=== PATIENT | male | born 1945 | race Caucasian/White ===

== ENCOUNTER 2016-06-26 09:52 | Inpatient (IN) | payer OTHER ==
[~2016-06-26] VITALS: Ht 175.3 cm; Wt 104.5 kg
[~2016-06-26 09:52] MED LIST: ADVAIR 250/501 DISK IH; AMOXICILLIN500 M1 PO; ATORVASTATIN CA40 MG PO; CITALOPRAM HBR20 MG PO; COGENTIN2 MG PO; FLEXERIL10 MG PO; FLOMAX0.4 MG PO; GABAPENTIN300 MG PO; GLIPIZIDE10 MG PO; LISINOPRIL10 MG PO; LOPRESSOR50 MG PO; METFORMIN HCL1000 MG PO; NOVOLOG MI100 UNIT/M SC; SKELAXIN800 MG PO; SOMA250 MG PO
[2016-06-26] MEDS ORDERED: METOPROLOL TAR100 MG PO (10:08)
[2016-06-26] MEDS ORDERED: LISINOPRIL20 MG PO (10:08)
[2016-06-26 10:49] LABS: EOSINOPHIL (%) 1.2 % (0-5); EOSINOPHIL COUNT 0.2 K/uL (0-0.3); HEMATOCRIT 44.4 % (38.0-50.0); IMMATURE GRANULOCYTE (%) 0.2 % (0.0-0.7); IMMATURE GRANULOCYTE COUNT 0.2 K/uL; LYMPHOCYTE COUNT 1.5 K/uL (1.0-2.8); MCHC 33.8 G/DL (30.0-36.0); MCV 82.8 FL (86-99); MEAN PLAT.VOLUME 10.5 uM^3 (9.0-12.4); MONOCYTE (%) 7.2 % (3-12); MONOCYTE COUNT 0.9 K/uL (0-0.8); NEUTROPHIL (%) 78.8 % (45-76); NEUTROPHIL COUNT 9.8 K/uL (1.8-6.4); PLATELET COUNT 229 K/uL (156-360); RBC DIS.WIDTH-CV 14.4 % (11.8-14.6); RBC DIS.WIDTH-SD 43.1 % (39-53); RED BLOOD COUNT 5.36 M/uL (4.00-5.50); WHITE BLOOD COUNT 12.4 K/uL (4.1-10.2)
[2016-06-26 10:57] LABS: CHLORIDE 102 mEq/L (99-109); POTASSIUM 4.4 mEq/L (3.7-5.4); SODIUM 137 mEq/L (136-147)
[2016-06-26 10:59] LABS: GLUCOSE 230 mg/dL (70-99)
[2016-06-26 11:01] LABS: ANION GAP 12 MEQ/L (2-14); TOTAL BILIRUBIN 0.6 mg/dL (0.0-1.0)
[2016-06-26 11:01] LABS: INTER. NORMALIZED RATIO 1.1; PROTHROMBIN TIME 11.5 (9.2-11.2); PTT 24.5 (25-32)
[2016-06-26 11:03] LABS: ALKALINE PHOSPHATASE 66 IU/L (3-129); GFR ESTIMATE (CALCULATED) > 59 mL/min/
[2016-06-26 11:04] LABS: UREA NITROGEN (BUN) 21 mg/dL (9-23)
[2016-06-26 11:09] LABS: TROP-I INTERPRETATION NEGATIVE; TROPONIN-I 0.12 ng/mL (0.0-0.30)
[2016-06-26] MEDS ORDERED: URIBEL CAPSULE1 EACH PO (13:31)
[2016-06-26] MEDS ORDERED: BENZTROPINE MESY2 MG PO (13:31)
[2016-06-26] MEDS ORDERED: NOVOLOG MI100 UNIT/M SC (13:38)
[2016-06-26] MEDS ORDERED: DAILY VALUE1 EACH PO (13:38)
[2016-06-26] MEDS ORDERED: CO Q-10100 MG PO (13:38)
[2016-06-26 14:15] VITALS: BP 125/65
[2016-06-26 17:47] LABS: POINT-OF-CARE METER ID UU13113700
[2016-06-26 19:09] LABS: TROP-I INTERPRETATION POSITIVE
[2016-06-26 19:10] LABS: TROPONIN-I 21.71 ng/mL (0.0-0.30)
[2016-06-26 21:00] VITALS: BP 125/63
[2016-06-26 22:02] LABS: POINT-OF-CARE METER ID UU13113700
[2016-06-26 23:39] VITALS: BP 100/52
[2016-06-27 03:05] LABS: TROP-I INTERPRETATION POSITIVE
[2016-06-27 03:07] LABS: TROPONIN-I 29.15 ng/mL (0.0-0.30)
[2016-06-27 04:06] VITALS: BP 100/64
[2016-06-27 12:23] VITALS: BP 87/53
[2016-06-27 12:23] LABS: POINT-OF-CARE METER ID UU14162513
[2016-06-27 16:14] VITALS: BP 105/58
[2016-06-27 17:32] LABS: POINT-OF-CARE METER ID UU13113700
[2016-06-27 20:03] VITALS: BP 113/62
[2016-06-28 00:36] LABS: TROP-I INTERPRETATION POSITIVE
[2016-06-28 00:57] LABS: TROPONIN-I 13.46 ng/mL (0.0-0.30)
[2016-06-28 01:01] VITALS: BP 110/58
[2016-06-28 05:05] VITALS: BP 111/56
[2016-06-28 06:38] LABS: EOSINOPHIL (%) 2.3 % (0-5); EOSINOPHIL COUNT 0.2 K/uL (0-0.3); HEMATOCRIT 39.9 % (38.0-50.0); IMMATURE GRANULOCYTE (%) 0.1 % (0.0-0.7); LYMPHOCYTE COUNT 2.3 K/uL (1.0-2.8); MCH 27.7 PG (29.0-34.0); MCHC 32.6 G/DL (30.0-36.0); MCV 84.9 FL (86-99); MEAN PLAT.VOLUME 11.3 uM^3 (9.0-12.4); NEUTROPHIL (%) 57.1 % (45-76); NEUTROPHIL COUNT 4.7 K/uL (1.8-6.4); PLATELET COUNT 204 K/uL (156-360); RBC DIS.WIDTH-CV 14.6 % (11.8-14.6); RBC DIS.WIDTH-SD 45.4 % (39-53)
[2016-06-28 06:44] LABS: WHITE BLOOD COUNT 8.2 K/uL (4.1-10.2)
[2016-06-28 08:01] LABS: ALKALINE PHOSPHATASE 63 IU/L (3-129); ANION GAP 7 MEQ/L (2-14); CHLORIDE 103 MEQ/L (99-109); GFR ESTIMATE (CALCULATED) > 59 mL/min/; GLUCOSE 150 mg/dL (70-99); POTASSIUM 4.6 MEQ/L (3.7-5.4); SAMPLE HEMOLYSIS CHECK 0; SAMPLE ICTERIC CHECK 0; SAMPLE LIPEMIA CHECK 0; SODIUM 133 MEQ/L (136-147); TOTAL BILIRUBIN 0.5 MG/DL (0.0-1.0); UREA NITROGEN (BUN) 18 mg/dL (9-23)
[2016-06-28 12:00] VITALS: BP 115/64
[2016-06-28 21:20] VITALS: BP 125/68
[2016-06-28 23:38] VITALS: BP 146/67
[2016-06-29 01:32] LABS: TROP-I INTERPRETATION POSITIVE; TROPONIN-I 7.83 ng/mL (0.0-0.30)
[2016-06-29 04:15] VITALS: BP 125/76
[2016-06-29 06:18] LABS: HEMATOCRIT 39.1 % (38.0-50.0); MCH 27.8 PG (29.0-34.0); MCHC 32.7 G/DL (30.0-36.0); MCV 84.8 FL (86-99); PLATELET COUNT 203 K/uL (156-360); RBC DIS.WIDTH-CV 14.8 % (11.8-14.6); RBC DIS.WIDTH-SD 45.6 % (39-53); RED BLOOD COUNT 4.61 M/uL (4.00-5.50); WHITE BLOOD COUNT 7.2 K/uL (4.1-10.2)
[2016-06-29 09:02] VITALS: BP 135/81
[2016-06-29 12:19] VITALS: BP 140/76
[2016-06-29 12:35] LABS: POINT-OF-CARE METER ID UU14162513
[2016-06-29 16:37] LABS: POINT-OF-CARE METER ID UU13113819
[2016-06-29 18:15] VITALS: BP 162/77
[2016-06-29 20:00] VITALS: BP 130/76
[2016-06-29 21:41] LABS: POINT-OF-CARE METER ID UU13113698
[2016-06-29 23:11] VITALS: BP 139/67
[2016-06-30 01:06] LABS: TROP-I INTERPRETATION POSITIVE
[2016-06-30 01:08] LABS: TROPONIN-I 7.94 ng/mL (0.0-0.30)
[2016-06-30 04:13] VITALS: BP 136/78
[2016-06-30 08:00] VITALS: BP 159/73
[2016-06-30 08:01] LABS: POINT-OF-CARE METER ID UU13113698
[2016-06-30 11:38] VITALS: BP 144/79
[2016-06-30 15:31] VITALS: BP 137/69
[2016-06-30 16:03] LABS: POINT-OF-CARE METER ID UU13113698
[2016-06-30 20:02] VITALS: BP 155/76
[2016-06-30 23:24] VITALS: BP 135/71
[2016-07-01] VITALS (7 sets, daily range): BP systolic 100–181; BP diastolic 57–81
[2016-07-01 06:34] LABS: HEMATOCRIT 39.7 % (38.0-50.0); MCH 27.3 PG (29.0-34.0); MCHC 32.5 G/DL (30.0-36.0); MCV 84.1 FL (86-99); MEAN PLAT.VOLUME 11.3 uM^3 (9.0-12.4); PLATELET COUNT 194 K/uL (156-360); RBC DIS.WIDTH-CV 14.7 % (11.8-14.6); RBC DIS.WIDTH-SD 45.6 % (39-53); RED BLOOD COUNT 4.72 M/uL (4.00-5.50); WHITE BLOOD COUNT 6.7 K/uL (4.1-10.2)
[2016-07-01 07:03] LABS: ANION GAP 9 MEQ/L (2-14); CHLORIDE 106 MEQ/L (99-109); GFR ESTIMATE (CALCULATED) > 59 mL/min/; POTASSIUM 4.1 MEQ/L (3.7-5.4); SAMPLE HEMOLYSIS CHECK 0; SAMPLE ICTERIC CHECK 0; SAMPLE LIPEMIA CHECK 0; SODIUM 138 MEQ/L (136-147); UREA NITROGEN (BUN) 8 mg/dL (9-23)
[2016-07-01 07:05] LABS: GLUCOSE 92 mg/dL (70-99)
[2016-07-01 07:43] LABS: POINT-OF-CARE METER ID UU13113698
[2016-07-01] MEDS ORDERED: ASPIR-LOW81 MG PO (10:11)
[2016-07-01] MEDS ORDERED: ALPRAZOLAM0.5 MG PO (10:11)
[2016-07-01] MEDS ORDERED: CLOPIDOGREL75 MG PO (10:11)
[2016-07-01 16:09] LABS: POINT-OF-CARE METER ID UU13113698
[2016-07-01 21:17] LABS: POINT-OF-CARE METER ID UU13113781
[2016-07-01 21:50] LABS: POINT-OF-CARE METER ID UU13113781
[2016-07-01 23:20] LABS: ADD MIUA? NO; BILIRUBIN NEGATIVE; BLOOD NEGATIVE; COLOR YELLOW ((YELLOW)); GLUCOSE (STRIP) NEGATIVE; KETONES NEGATIVE; LEUKOCYTES NEGATIVE; NITRITE NEGATIVE; PROTEIN (STRIP) TRACE; UCUL ADDED? NO
[2016-07-02 01:01] LABS: TROP-I INTERPRETATION POSITIVE
[2016-07-02 01:03] LABS: TROPONIN-I 2.35 ng/mL (0.0-0.30)
[2016-07-02 03:04] VITALS: BP 124/70
[2016-07-02 03:20] LABS: POINT-OF-CARE METER ID UU13113781
[2016-07-02 05:13] LABS: POINT-OF-CARE METER ID UU14174216
[2016-07-02 06:35] LABS: EOSINOPHIL (%) 1.9 % (0-5); EOSINOPHIL COUNT 0.2 K/uL (0-0.3); HEMATOCRIT 38.5 % (38.0-50.0); IMMATURE GRANULOCYTE (%) 0.2 % (0.0-0.7); LYMPHOCYTE COUNT 1.2 K/uL (1.0-2.8); MCH 27.3 PG (29.0-34.0); MCHC 31.4 G/DL (30.0-36.0); MCV 86.7 FL (86-99); MEAN PLAT.VOLUME 11.3 uM^3 (9.0-12.4); MONOCYTE (%) 11.5 % (3-12); MONOCYTE COUNT 1.3 K/uL (0-0.8); NEUTROPHIL (%) 75.3 % (45-76); NEUTROPHIL COUNT 8.4 K/uL (1.8-6.4); PLATELET COUNT 193 K/uL (156-360); RBC DIS.WIDTH-CV 15.5 % (11.8-14.6); RBC DIS.WIDTH-SD 49.2 % (39-53); RED BLOOD COUNT 4.44 M/uL (4.00-5.50)
[2016-07-02 06:42] LABS: ANION GAP 8 MEQ/L (2-14); CHLORIDE 105 MEQ/L (99-109); GFR ESTIMATE (CALCULATED) > 59 mL/min/; GLUCOSE 86 mg/dL (70-99); MAGNESIUM 1.8 mg/dl (1.3-2.7); POTASSIUM 4.2 MEQ/L (3.7-5.4); SAMPLE HEMOLYSIS CHECK 0; SAMPLE ICTERIC CHECK 0; SAMPLE LIPEMIA CHECK 0; SODIUM 136 MEQ/L (136-147); UREA NITROGEN (BUN) 9 mg/dL (9-23)
[2016-07-02 06:45] LABS: WHITE BLOOD COUNT 11.2 K/uL (4.1-10.2)
[2016-07-02 09:06] VITALS: BP 136/78
[2016-07-02 11:25] LABS: POINT-OF-CARE METER ID UU13113781
[2016-07-02 13:02] VITALS: BP 148/70
[2016-07-02 13:20] VITALS: BP 148/70
[2016-07-02 16:00] VITALS: BP 141/65
[2016-07-02 16:41] LABS: POINT-OF-CARE METER ID UU13113698
[2016-07-02 19:39] VITALS: BP 145/76
[2016-07-02 20:52] LABS: POINT-OF-CARE METER ID UU13113698
[2016-07-02 20:53] LABS: METH RESISTANT S AUREUS PCR NEGATIVE (NEGATIVE); PROBE CHECK PASS; SPECIMEN PROCESSING CONTROL PASS
[2016-07-03] VITALS: BP 149/64
[2016-07-03 04:00] VITALS: BP 139/72
[2016-07-03 05:35] LABS: EOSINOPHIL (%) 1.8 % (0-5); EOSINOPHIL COUNT 0.2 K/uL (0-0.3); HEMATOCRIT 35.8 % (38.0-50.0); IMMATURE GRANULOCYTE (%) 0.2 % (0.0-0.7); LYMPHOCYTE COUNT 0.9 K/uL (1.0-2.8); MCH 27.4 PG (29.0-34.0); MCHC 31.8 G/DL (30.0-36.0); MCV 86.1 FL (86-99); MEAN PLAT.VOLUME 11.6 uM^3 (9.0-12.4); MONOCYTE (%) 13.7 % (3-12); MONOCYTE COUNT 1.6 K/uL (0-0.8); NEUTROPHIL (%) 76.1 % (45-76); NEUTROPHIL COUNT 8.6 K/uL (1.8-6.4); PLATELET COUNT 217 K/uL (156-360); RBC DIS.WIDTH-CV 15.1 % (11.8-14.6); RBC DIS.WIDTH-SD 47.1 % (39-53); RED BLOOD COUNT 4.16 M/uL (4.00-5.50); WHITE BLOOD COUNT 11.3 K/uL (4.1-10.2)
[2016-07-03 05:59] LABS: ANION GAP 10 MEQ/L (2-14); CHLORIDE 105 MEQ/L (99-109); GFR ESTIMATE (CALCULATED) > 59 mL/min/; MAGNESIUM 1.7 mg/dl (1.3-2.7); POTASSIUM 4.1 MEQ/L (3.7-5.4); SAMPLE HEMOLYSIS CHECK 0; SAMPLE ICTERIC CHECK 0; SAMPLE LIPEMIA CHECK 0; SODIUM 135 MEQ/L (136-147); UREA NITROGEN (BUN) 9 mg/dL (9-23)
[2016-07-03 06:02] LABS: GLUCOSE 110 mg/dL (70-99)
[2016-07-03 07:36] LABS: POINT-OF-CARE METER ID UU13113698
[2016-07-03 09:08] VITALS: BP 130/81
[2016-07-03 11:05] LABS: INFLUENZA A VIRAL ANTIGEN NEGATIVE; INFLUENZA B VIRAL ANTIGEN NEGATIVE
[2016-07-03 11:29] VITALS: BP 143/69
[2016-07-03 11:39] LABS: POINT-OF-CARE METER ID UU13113698
[2016-07-03 16:10] LABS: POINT-OF-CARE METER ID UU13113698
[2016-07-03 16:35] VITALS: BP 133/74
[2016-07-03 19:08] VITALS: BP 150/73
[2016-07-04] VITALS: BP 134/73
[2016-07-04 04:00] VITALS: BP 148/79
[2016-07-04 06:00] LABS: EOSINOPHIL (%) 2.7 % (0-5); EOSINOPHIL COUNT 0.2 K/uL (0-0.3); HEMATOCRIT 34.6 % (38.0-50.0); IMMATURE GRANULOCYTE (%) 0.1 % (0.0-0.7); MCH 27.5 PG (29.0-34.0); MCHC 32.4 G/DL (30.0-36.0); MONOCYTE (%) 10.9 % (3-12); NEUTROPHIL (%) 74.2 % (45-76); NEUTROPHIL COUNT 6.5 K/uL (1.8-6.4); PLATELET COUNT 231 K/uL (156-360); RBC DIS.WIDTH-CV 14.8 % (11.8-14.6); RBC DIS.WIDTH-SD 46.1 % (39-53); RED BLOOD COUNT 4.07 M/uL (4.00-5.50); WHITE BLOOD COUNT 8.8 K/uL (4.1-10.2)
[2016-07-04 06:26] LABS: ANION GAP 9 MEQ/L (2-14); CHLORIDE 106 MEQ/L (99-109); GFR ESTIMATE (CALCULATED) > 59 mL/min/; GLUCOSE 102 mg/dL (70-99); MAGNESIUM 1.8 mg/dl (1.3-2.7); POTASSIUM 4.1 MEQ/L (3.7-5.4); SAMPLE HEMOLYSIS CHECK 0; SAMPLE ICTERIC CHECK 0; SAMPLE LIPEMIA CHECK 0; SODIUM 137 MEQ/L (136-147); UREA NITROGEN (BUN) 10 mg/dL (9-23)
[2016-07-04 08:06] LABS: POINT-OF-CARE METER ID UU14174216; POINT-OF-CARE USER ID NUTSLF44
[2016-07-04 08:43] VITALS: BP 136/64
[2016-07-04 11:33] LABS: POINT-OF-CARE METER ID UU14174216; POINT-OF-CARE USER ID NUTSLF44
[2016-07-04 12:12] VITALS: BP 182/94
[2016-07-04 16:04] VITALS: BP 155/75
[2016-07-04 16:49] LABS: POINT-OF-CARE METER ID UU13113698; POINT-OF-CARE USER ID NUTSLF44
[2016-07-04 20:00] VITALS: BP 156/87
[2016-07-04 20:43] LABS: POINT-OF-CARE METER ID UU13113698
[2016-07-05 00:12] VITALS: BP 142/71
[2016-07-05 03:32] VITALS: BP 149/80
[2016-07-05 07:33] LABS: POINT-OF-CARE METER ID UU13113698
[2016-07-05 08:27] VITALS: BP 163/86
[2016-07-05] MEDS ORDERED: AUGMENTIN500 MG PO (09:08)
[2016-07-05] MEDS ORDERED: LASIX20 MG PO (09:14)
[2016-07-05 11:42] LABS: POINT-OF-CARE METER ID UU14174216
[2016-07-05 12:26] VITALS: BP 133/65
== END 2016-07-05 15:48 | disposition home or self-care (01) | DRG 280 ==
LOC: EME 09:52 → EDOF 11:49 → 5WEST 13:43 → 4EAST 19:49 → 5WEST 19:49 → 4EAST 06-29 18:18
PROVIDERS: Emergency Medicine; Hospitalist; Internal Medicine; Physician Assistant; Physician Assistant Medical
DX: I21.4 Non-ST elevation (NSTEMI) myocardial infarction (principal); J18.9 Pneumonia, unspecified organism; I50.21 Acute systolic (congestive) heart failure; I95.1 Orthostatic hypotension; E87.70 Fluid overload, unspecified; G20 Parkinson's disease; E11.40 Type 2 diabetes mellitus with diabetic neuropathy, unspecified; I25.10 Atherosclerotic heart disease of native coronary artery without angina pectoris; E78.5 Hyperlipidemia, unspecified; I10 Essential (primary) hypertension; Y95 Nosocomial condition; E66.9 Obesity, unspecified; Z95.5 Presence of coronary angioplasty implant and graft; I25.2 Old myocardial infarction; G47.33 Obstructive sleep apnea (adult) (pediatric); Z79.4 Long term (current) use of insulin; M19.90 Unspecified osteoarthritis, unspecified site; Z68.32 Body mass index [BMI] 32.0-32.9, adult; Z86.73 Personal history of transient ischemic attack (TIA), and cerebral infarction without residual deficits; Z87.891 Personal history of nicotine dependence
CPT/HCPCS: 70450; 71010; 80048; 80053; 80202; 81003; 82948; 83605; 83735; 84484; 85025; 85027; 85610; 85730; 87040; 87449; 87502; 87641; 93005; 93306; 93880; 94640; 94640 76; 94799; 99281; 99284; C1769; C1887; J1644; J1650; J1815; J1940; J2250; J2405; J2543; J3010; J3370; J7030; J7040; J7050

== ENCOUNTER 2017-11-18 06:39 | Day surgery (SDC) | payer OTHER ==
[~2017-11-18] VITALS: Ht 177.8 cm; Wt 90.0 kg
[~2017-11-18 06:39] MED LIST changes: +ALPRAZOLAM0.5 MG PO; +ASPIR-LOW81 MG PO; +AUGMENTIN500 MG PO; +BENZTROPINE MESY2 MG PO; +CLOPIDOGREL75 MG PO; +CO Q-10100 MG PO; +DAILY VALUE1 EACH PO; +LASIX20 MG PO; +LISINOPRIL20 MG PO; +LO-DOSE ASPIRIN81 M2 PO; +METOPROLOL SUC100 MG PO; +METOPROLOL TAR100 MG PO; +URIBEL CAPSULE1 EACH PO
[2017-11-18 07:25] LABS: HEMATOCRIT 38.8 % (38.0-50.0); HEMOGLOBIN 12.3 G/DL (12.5-16.6); MCV 84.3 FL (86-99)
[2017-11-18] MEDS ORDERED: AUGMENTIN500 MG PO (07:46)
[2017-11-18 07:48] LABS: CHLORIDE 102 MEQ/L (99-109); CREATININE 1.1 MG/DL (0.6-1.3); GFR ESTIMATE (CALCULATED) > 59 mL/min/ (58.99-99999); GLUCOSE 75 mg/dL (70-99); POTASSIUM 3.7 MEQ/L (3.7-5.4); SODIUM 137 MEQ/L (136-147); UREA NITROGEN (BUN) 12 mg/dL (9-23)
[2017-11-18] MEDS ORDERED: ROCEPHIN 2 GM VI2 GM IM (07:48)
[2017-11-18] MEDS ORDERED: ADVIL,NUPRIN,M200 MG PO (07:53)
[2017-11-18 08:00] VITALS: BP 137/64
[2017-11-18 11:20] VITALS: BP 147/64
[2017-11-18 11:48] VITALS: BP 168/74
== END 2017-11-18 11:57 | disposition home or self-care (01) ==
LOC: SDC 06:39
PROVIDERS: Surgery
PROC: 0Y6M0Z8 Detachment at Right Foot, Complete 5th Ray, Open Approach (ICD-10-PCS; principal; 2017-11-18)
DX: M86.171 Other acute osteomyelitis, right ankle and foot (principal); M86.671 Other chronic osteomyelitis, right ankle and foot; E11.621 Type 2 diabetes mellitus with foot ulcer; L97.511 Non-pressure chronic ulcer of other part of right foot limited to breakdown of skin; E11.51 Type 2 diabetes mellitus with diabetic peripheral angiopathy without gangrene; I70.245 Atherosclerosis of native arteries of left leg with ulceration of other part of foot; Z95.5 Presence of coronary angioplasty implant and graft; Z89.411 Acquired absence of right great toe; Z79.82 Long term (current) use of aspirin; Z79.02 Long term (current) use of antithrombotics/antiplatelets; Z82.49 Family history of ischemic heart disease and other diseases of the circulatory system; Z83.3 Family history of diabetes mellitus; Z82.3 Family history of stroke
CPT/HCPCS: 80048; 82948; 85014; 85018; 88305; 88311; J0690; J2250; J7120